=== PATIENT | male | born 1955 | race Caucasian/White ===

== ENCOUNTER → 2024-05-30 | Outpatient (CLI) | payer MEDICARE, BC, SELFPAY ==
--- NOTE | 2024-05-30 13:00 | XR_ITS ---
Examination: CT abdomen and pelvis without contrast. Coronal 3-D reconstructions. Sagittal 2-D reconstructions. Date and time of exam:May 30, 2024 1600 hours Comparison August 25, 2015 CTDI: vol (mGy): 11.5 DLP: (mGycm): 764 Technique: Axial images of the abdomen have been obtained, 3 mm slice thickness Intravenous contrast material has not been administered. Low dose protocols were performed. One or more of the following dose reduction techniques were used; automated exposure control, adjustment of the mA and/or KV according to patient size, use of iterative reconstruction technique. Findings: No focal liver or splenic lesions Absent gallbladder No pancreatic mass Bilateral renal calculi, the largest is in the left renal pelvis, 14 mm with mild left hydronephrosis Normal appendix No ureteral calculi Transverse prostate dimension 4.9 cm Urinary bladder intact Severe osteopenia IMPRESSION: Multiple bilateral renal calculi, the largest in the left renal pelvis, 14 mm, with mild left hydronephrosis
== END | disposition home or self-care (01) ==
PROVIDERS: PCP Family Medicine; Referring Provider Family Medicine; Visit Provider Family Medicine
DX: N20.0 Calculus of kidney (principal); N13.30 Unspecified hydronephrosis
CPT/HCPCS: 74176

== ENCOUNTER 2024-09-13 06:30 | Day surgery (SDC) | payer MEDICARE, BC, SELFPAY ==
--- NOTE | 2024-09-10 06:41 | EKG_ITS ---
[facility] Test Date: 2024-09-10 Pat Name: FLAKITO MURILLO Department: Room: - Gender: Male Manager Operational: LOYDA : 1955 Requested By: Ozzie Ruvalcaba Order Number: [id number] Reading MD: Ozzie Ruvalcaba Measurements Intervals [place] Rate: 70 P: 20 ME: 174 QRS: -47 QRSD: 110 T: -7 QT: 409 QTc: 442 Interpretive Statements SINUS RHYTHM LEFT ANTERIOR FASCICULAR BLOCK [QRS AXIS <= -45, QR IN I, RS IN II] No previous ECG available for comparison /store/S0/[id number]/ecg/[id number].pdf
[2024-09-10 10:51] VITALS: BMI 33.0
[2024-09-10 11:27] LABS: Collection Type, Urine Clean Catch
[2024-09-10 11:48] LABS: Basophils # (Auto) 0.1 Thou/mm3 (0.0-0.2); Basophils % (Auto) 1 % (0-2.5); Eosinophils # (Auto) 0.3 Thou/mm3 (0.0-0.5); Eosinophils % (Auto) 4 % (0-10); Hematocrit 36.9 % (41.0-53.0); Hemoglobin 12.5 g/dL (13.5-16.0); Immature Granulocytes Auto 0.03 Thou/mm3 (0.00-0.00); Lymphocytes # (Auto) 1.8 Thou/mm3 (1.0-4.8); Lymphocytes % (Auto) 26 % (10-50); Mean Corpuscular HGB Conc 33.9 g/dl (31.0-37.0); Mean Corpuscular Hemoglobin 30.6 pg (25.0-35.0); Mean Corpuscular Volume 90 fL (80-100); Monocytes # (Auto) 0.6 Thou/mm3 (0.0-0.8); Monocytes % (Auto) 9 % (0-12); Neutrophils # (Auto) 4.1 Thou/mm3 (1.8-7.7); Neutrophils % (Auto) 60 % (37-80); Nucleated Red Blood Cell # 0.00 Thou/mm3 (0.00-0.00); Nucleated Red Blood Cell % 0 /100 WBC (0); Platelet Count 197 Thou/mm3 (140-440); RDW Standard Deviation 43.9 fL (35.1-43.9); Red Blood Count 4.09 Miln/mm3 (4.50-5.90); White Blood Count 6.8 Thou/mm3 (3.8-10.6)
[2024-09-10 12:03] LABS: Prostate Specific Antigen 0.87 ng/mL (0-4.00)
[2024-09-10 12:07] LABS: Alanine Aminotransferase 51 U/L (10-49); Albumin, Serum 4.5 gm/dL (3.4-4.8); Albumin/Globulin Ratio 2.0 (1.2-2.2); Alkaline Phosphatase 58 U/L (46-116); Anion Gap 10 (7-16); Aspartate Amino Transferase 35 U/L (0-34); BUN/Creatinine Ratio 14 Ratio (12-20); Bilirubin,Total 0.7 mg/dL (0.3-1.2); Blood Urea Nitrogen 17 mg/dL (9-23); Calcium 9.2 mg/dL (8.3-10.6); Calcium (Corrected) 9.2 mg/dL (8.5-10.1); Carbon Dioxide 27.0 mMol/L (20.0-31.0); Chloride 107 mMol/L (98-107); Creatinine (Component) 1.2 mg/dL (0.6-1.3); Estimated Creatinine Clearance 76.8 mL/min (>60); Globulin 2.3 gm/dL (2.3-3.5); Glucose 104 mg/dL (74-106); Osmolality,Calculated 288 (275-295); Potassium 3.8 mMol/L (3.4-5.1); Sodium 144 mMol/L (136-145); Total Protein 6.8 gm/dL (5.7-8.2); eGFR > 60 See Note
[2024-09-10 12:18] LABS: Bacteria,Urine 1+; Bilirubin,Urine Negative (Negative); Blood,Urine 3+ (Negative); Color,Urine Yellow (Lt Yel-Yel); Glucose, Urine Negative (Negative); Hyaline Casts,Urine 2 /hpf (0-1); Ketones,Urine Negative (Negative); Leukocyte Esterase,Urine Positive (Negative); Nitrite,Urine Negative (Negative); PH,Urine 6.0 (5.0-7.0); Protein,Urine 1+ (Neg - Trace); RBC,Urine 1822 /hpf (0-3); Specific Gravity,Urine 1.019 (1.001-1.035); Squamous Epithelial Cell,Urine 1 /hpf (0-5); Urobilinogen,Urine Negative mg/dL (0.0-1.0); WBC,Urine 527 /hpf (0-5)
[2024-09-10 12:25] LABS: Clarity,Urine Hazy (Clear/Hazy)
--- NOTE | 2024-09-12 12:56 | ESHP_ITS ---
RE: LFAKITO MURILLO : 1955 DATE OF ADMISSION: 09/13/2024 HISTORY OF PRESENT ILLNESS: Flakito is a 69-year-old gentleman with a history of bilateral renal stones. The patient has a history of blood in his urine and a history of kidney stones. The patient had CT scan of the abdomen and pelvis done, which revealed a left kidney stone 14.5 mm in size and the patient also has smaller right renal stone. The patient is now scheduled to have cystoscopy, left ureteral stent insertion, and bilateral ESWL. PAST SURGICAL HISTORY: Included kidney stone surgery with ESWL in the past. He had a cholecystectomy and cataract surgery. PAST MEDICAL HISTORY: There is no history of diabetes mellitus. He has a history of hypertension. ALLERGIES: TO PENICILLIN. SOCIAL HISTORY: He has 2 children. HOME MEDICATIONS: He takes; 1. Atenolol. 2. Norvasc. 3. Statin medication. 4. Aspirin. 5. Telmisartan. 6. Doxazosin 4 mg. PHYSICAL EXAMINATION: HEENT: Normal. NECK: Supple. LUNGS: Clear. CARDIOVASCULAR: Heart sounds are normal. ABDOMEN: Soft without any organomegaly. No guarding. No rigidity. EXTREMITIES: Normal. GENITOURINARY: Phallus is normal. Testes are down in scrotum. RECTAL: Examination reveals moderately enlarged smooth prostate. IMPRESSION: Bilateral renal calculi, left stone is bigger than the right. PLAN: Cystoscopy, left ureteral stent insertion and bilateral ESWL. Planned procedure risks and complications have been discussed with the patient. The patient has understood them and agreed to proceed. DT: 12:18:00 TT: 12:54:00 Ref: [id number] - TID: [id number]
[2024-09-13] VITALS (8 sets, daily range): BP systolic 119–148; BP diastolic 68–87; PULSE 67–78; RESP 14–20; TEMP 36.7–36.9; O2SAT 96–98; BMI 32.6
--- NOTE | 2024-09-13 06:00 | XR_ITS ---
Examination: Abdomen AP single view Technique: AP portable supine abdomen, single view Exam date and time: September 23, 2024 0716 hours INDICATIONS: Preop lithotripsy FINDINGS: Nonobstructive bowel gas pattern Suspicious for subtle calcifications lower pole left kidney No ureteral calculi No free air IMPRESSION: Suspicious for small calcifications lower pole left kidney
--- NOTE | 2024-09-13 07:35 | SUR.PREOP ---
Patient expressed gratitude for prayer before their procedure.
--- NOTE | 2024-09-13 10:29 | SUR.PHASEI ---
1029 Patient arrived to recovery resting comfortably in [facility], on oxygen 10L via oxy mask with an oral airway in place, breathing unlabored, vital signs stable, report received from Sandy MORTON and Lonny WATSON
--- NOTE | 2024-09-13 11:45 | SUR.PHASEII ---
1145 Patient meets discharge criteria from recovery, awake and alert, breathing unlabored, vital signs stable, denies pain, drinking fluids; tolerating well, denies nausea, assisted with dressing into his clothing by his , discharge instructions given to patient and patients , signed discharge instructions. Patient given all his belongings prior to discharge, transported via wheelchair and left in a private vehicle.
--- NOTE | 2024-09-13 13:23 | SUR.OPER ---
Late entry: ESWL treatment Left side: 2,500 shocks with power of 8 Right side: 1,800 shocks with power of 8 Fluoro time for both sides: 3 minutes and 22 seconds.
--- NOTE | 2024-09-13 20:50 | ESOP_ITS ---
RE: FLAKITO MURILLO : 1955 PREOPERATIVE DIAGNOSIS: Large left renal stone about 15 mm in size and a right mid pole stone 6 mm in size. POSTOPERATIVE DIAGNOSIS: Large left renal stone about 15 mm in size and a right mid pole stone 6 mm in size. PROCEDURES PERFORMED: 1. Cystoscopy, left ureteral stent insertion, ESWL for left renal stone 15 mm in size in the left mid pole. 2. ESWL for the right renal stone, 6 mm in size. ANESTHESIA: General. INDICATION: The patient is a 69-year-old gentleman with bilateral renal stones and pain. The patient has a 15 mm stone in the left mid pole. He also has a 6 mm stone in the right mid pole. He was now scheduled to have cystoscopy, left ureteral stent insertion, and extracorporeal shockwave lithotripsy for left renal stone and right renal stone. Planned procedure, risks, and complications have been discussed with the patient. The patient has understood them and agreed to proceed. DESCRIPTION OF PROCEDURE: After the patient was brought to the operating table under adequate general anesthesia and dorsal lithotomy position, parts were prepped and draped in the usual fashion. Cystoscopy was then carried out, which revealed adequate urethral meatus, normal-appearing urethra, moderately enlarged bilobed prostate. Scope was introduced into the bladder. There are no intravesical stones or tumors. Ureteral orifices were found to be normal in position and appearance. Open tip ureteral catheter was then introduced into the left ureteral orifice and was advanced all the way up to the left kidney. The patient is 6 feet x 2 inches long. A guidewire was inserted inside the ureteral catheter and was advanced all the way up to the left kidney. Ureteral catheter was then removed and a 6-Polish x multi-length stent was inserted over the guidewire under C-arm fluoroscopy control so as the proximal loop of the stent is lying in the left kidney and distal loop is in the bladder. Scope was withdrawn. The patient was then turned for the left ESWL on Dornier Delta III lithotripsy machine. 2500 shocks were given to the 15 mm left renal stone. At the end of this procedure, the patient was then turned for the right renal stone. 2500 shocks were given through the right renal stone up to power level 8. The patient tolerated the entire procedure well and left the room in good condition. DT: 10:11:12 TT: 11:07:00 Ref: [id number] - TID: [id number]
== END 2024-09-13 11:45 | disposition home or self-care (01) ==
PROVIDERS: Anesthesiology; Referring Provider Surgery; Visit Provider Surgery
PROC: (CPT 50590; principal; 2024-09-13 08:30)
PROC: (CPT 52282; 2024-09-13 08:30)
DX: N20.0 Calculus of kidney (principal); Z01.810 Encounter for preprocedural cardiovascular examination; I44.4 Left anterior fascicular block; Z90.49 Acquired absence of other specified parts of digestive tract
CPT/HCPCS: 50590; 52332; 36415; 74018; 80053; 81001; 84153; 85025; 87077; 87086; 87186; 93005; A4217; A4649; C2617; J0461; J0694; J1100; J2405; J2704; J3010

== ENCOUNTER → 2024-10-04 | Outpatient (CLI) | payer MEDICARE, BC, SELFPAY ==
--- NOTE | 2024-10-04 | XR_ITS ---
Examination: Abdomen AP single view Technique: AP portable supine abdomen, single view Exam date and time: October 04, 2024, 1142 hours INDICATIONS: History kidney stones left flank pain, status post left ureteral stent placement FINDINGS: Bilateral renal calculi, the largest in the lower pole left kidney 18 mm Left ureteral stent satisfactory position Nonobstructive bowel gas pattern IMPRESSION: Bilateral renal calculi Satisfactory position left ureteral stent
== END | disposition home or self-care (01) ==
PROVIDERS: PCP Surgery; Referring Provider Surgery; Visit Provider Surgery
DX: N20.0 Calculus of kidney (principal)
CPT/HCPCS: 74018; 82365

== ENCOUNTER → 2024-10-21 | Outpatient (CLI) | payer MEDICARE, BC, SELFPAY ==
--- NOTE | 2024-10-21 15:23 | XR_ITS ---
Examination: Abdomen AP single view Technique: AP portable supine abdomen, single view Exam date and time: October 21, 2024 1531 hours, comparison 10/04/2024 INDICATIONS: History kidney stones ureteral stent FINDINGS: Left ureteral stent satisfactory position Stable calculi lower pole left kidney IMPRESSION: Left ureteral stent satisfactory position
== END | disposition home or self-care (01) ==
PROVIDERS: PCP Family Medicine; Referring Provider Surgery; Visit Provider Surgery
DX: N20.0 Calculus of kidney (principal)
CPT/HCPCS: 74018